=== PATIENT | female | born 1985 ===

== ENCOUNTER 2022-04-22 06:14 | Inpatient (IN) | payer OTHER ==
[2022-04-19 13:39] LABS: Hematocrit 33.8 % (30.3-42.9); Hemoglobin 10.8 gm/dl (10.1-14.3); Mean Corpuscular HGB Conc 32 % (30-34); Mean Corpuscular Volume 75 fl (79-97); Platelet Count 232 K/mm3 (140-440); Red Blood Count 4.53 M/mm3 (3.65-5.03); Red Cell Distribution Width 16.2 % (13.2-15.2)
--- NOTE | 2022-04-21 20:31 | History and Physical Report ---
History of Present Illness Date of examination: 04/19/22 Date of admission: 04/22/22 Chief complaint: here for c/s History of present illness: Pt reports for pre op for repeat c/s x3. She does not desire a BTL. All risk/benefits/alternatives were d/w pt and questions were addressed and answered. Consents were signed and placed on the chart. EDC Confirmation: 04/29/2022 Gestational Age: 38 6/7 weeks Past History : 3 Term Births: 2 Premature Births: 0 Living Children: 2 Para: 2 Mult. Births: 0 Prev : 2 Prev. attempt? none Aborta: 0 Elect. Ab: 0 Spont. Ab: 0 Ectopics: 0 # 1 Delivery date: 2007 Weeks Gestation: 39 labor: no Delivery type: Hours of labor: 18 Anesthesia type: epidural Delivery location: [place] Sex: Male weight: 8lbs 12oz Comments: IOL for LGA, CS for "too big, I wouldn't dilate" # 2 Delivery date: 2015 Weeks Gestation: 39 labor: no Delivery type: Anesthesia type: epidural Delivery location: [place] Infant Sex: Male weight: 9lbs Comments: scheduled repeat CS Past Medical History: Reviewed and updated today: Negative Past Medical History Past Surgical History: Reviewed and updated today: 2015 Family History Summary: First Degree Blood Relative - Has No Known Family History - Entered On: 12/07/2021 Social History: Smoking History: Patient has never smoked. Risk Factors: Smoked Tobacco Use: Never smoker Smokeless Tobacco Use: Never Counseled to Quit/Cut Down: yes Passive Smoke Exposure: no HIV High Risk Behavior: low risk Caffeine Use: 1 drinks per day Exercise: yes Exercise Counseling: yes Seatbelt Use: preg-marriage counselor % Family History Risk Factors: Family History of UT in 1 Female Relative Age < 65: no Family History of UT in 1 Male Relative Age < 55: no No Dietary Counseling Reason: pn yes Alcohol Use: no Drug Use: no Past Medical History Anesthesia Complications: negative Anemia: negative Autoimmune Disorder: negative Bleeding Disorder: negative Blood Transfusions: negative Breast Disease: negative Diabetes: negative Heart Disease: negative Hypertension: negative Hepatitis/Liver Disease: negative Kidney Disease/UTI: negative Neurologic/Epilepsy/Migraines: negative Phlebitis/Varicosities: negative Psychiatric: negative Pulmonary Disease/Asthma: negative Thyroid Disease: negative Hospitalizations: negative 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 Infection History Hx of STD: none HIV Risk Eval: low risk Hepatitis B Risk Eval: low risk Personal hx. of genital herpes: no Partner hx. of genital herpes: no Rash, Viral, or Febrile illness since last LMP? no Varicella/Chicken Pox Status: Previous Disease TB Risk: no Genetic History ADVANCED MATERNAL AGE Congenital Heart Defect: Mom: no Dad: no Vimal Disease: Mom: no Dad: no Thalassemia Mom: no Dad: no Neural Tube Defect Mom: no Dad: no Down's Syndrome Mom: no Dad: no Terrence-Sachs Mom: no Dad: no Sickle Cell Disease/Trait Mom: no Dad: no Hemophilia Mom: no Dad: no Muscular Dystrophy Mom: no Dad: no Cystic Fibrosis Mom: no Dad: no Will Chorea Mom: no Dad: no Mental Retardation Mom: no Dad: no Fragile X Mom: no Dad: no Other Genetic/Chromosomal Disorder Mom: no Dad: no Child w/other defect Mom: no Dad: no Enviromental Exposures Enviromental Exposures Reviewed Xray Exposure: no Medication, drug, or alcohol use since LMP: no Chemical/Other Exposure: no Exposure to Cat Liter: no Hx of Parvovirus (Fifth Disease): no Occupational Exposure to Children: none Active Medications (reviewed today): Vitamin with Minerals 28 mg iron- 800 mcg tablet ( vit-iron fum-folic ac) Take 1 tablet by mouth once a day Current Allergies (reviewed today): No known allergies Past History Past Medical History: other (see hpi) Past Surgical History: other (see hpi) 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) Social history: other (see hpi) - Obstetrical History Expected Date of Delivery: 04/29/22 Actual Gestation: 38 Week(s) 6 Day(s) : 3 Para: 2 Hx # Term Pregnancies: 2 Number of Living Children: 2 Medications and Allergies Allergies Allergy/AdvReac Type Severity Reaction Status Date / Time No Known Allergies Allergy Verified 04/17/22 14:31 Home Medications Medication Instructions Recorded Confirmed Last Taken Type No Known Home Medications [No 04/17/22 04/17/22 Unknown History Reported Home Medications] Review of Systems All systems: negative - Vital Signs Vital signs: Vital Signs Temp Pulse Resp BP Pulse Ox 97.9 F 76 20 119/79 97 04/19/22 13:00 04/19/22 13:00 04/19/22 13:00 04/19/22 13:00 04/19/22 13:00 Temp Pulse Resp BP Pulse Ox 97.9 F 76 20 119/79 97 04/19/22 13:00 04/19/22 13:00 04/19/22 13:00 04/19/22 13:00 04/19/22 13:00 - Physical Exam Cardiovascular: Normal S1, Normal S2 Lungs: Positive: Clear to auscultation, Normal air movement Abdomen: Positive: normal appearance, soft. Negative: distention, tenderness, guarding Genitourinary (Female): Positive: other (deferred) Results Result Diagrams: 04/19/22 13:10 All other labs normal. Strep Gp B MALKA Negative Assessment and Plan - Patient Problems (1) 39 weeks gestation of Status: Acute (2) Previous delivery affecting Status: Acute Plan to address problem: -admit and pre pare for c/s -consent signed and placed on the chart.
[~2022-04-22 06:14] MED LIST: BICITRA ORAL LIQD 30ML PO ONE; FAMOTIDINE 20 MG/2 ML INJ IV ONE; LACTATED RINGERS 1,000 ML IV SCH; METOCLOPRAMIDE 10 MG/2 ML INJ IV ONE; OXYTOCIN DRIP 30 UNITS/500 ML BAG IV SCH; ceFAZolin/Water 2 GM/20 ML 2 GM/20 ML SYRINGE IV NR
[2022-04-22] MEDS ORDERED: FAMOTIDINE 20 MG/2 ML INJ IV ONE (10:38)
[2022-04-22] MEDS ORDERED: METOCLOPRAMIDE 10 MG/2 ML INJ ONE (10:38)
[2022-04-22] MEDS ORDERED: BICITRA ORAL LIQD 30ML ONE (10:38)
[2022-04-22] MEDS ORDERED: miSOPROStol 200 MCG TAB ONE ×2 (10:39→10:40)
[2022-04-22] MEDS ORDERED: ceFAZolin/Water 2 GM/20 ML 2 GM/20 ML SYRINGE IV ONE (10:39)
[2022-04-22] MEDS ORDERED: CARBOPROST TROMETHAMINE 250 MCG/1 ML INJ IM ONE (10:40)
[2022-04-22] MEDS ORDERED: METHYLERGONOVINE MALEATE 0.2 MG/ML VIAL IM ONE (10:40)
[2022-04-22] MEDS ORDERED: SODIUM CHLORIDE 0.9% 100 ML ONE (11:31)
[2022-04-22] MEDS ORDERED: ePHEDrine SULFATE 50 MG/1 ML INJ ONE (11:31)
[2022-04-22] MEDS ORDERED: BUPIVACAINE/PF (0.5%) 5 MG/1 ML 30 ML VIAL INFILTRATI ONE (11:40)
[2022-04-22] MEDS ORDERED: PHENYLEPHRINE/NS 1,000 MCG/10 ML SYRINGE (OR USE) IV ONE (11:40)
--- NOTE | 2022-04-22 13:27 | Operative Report ---
Operative Report Operative Report: Date of procedure: 04/22/2022 Pre-operative diagnosis: 39 weeks gestation Previous section x2 Post-operative diagnosis: Same Procedure name(s): Primary low transverse section via Pfannenstiel skin incision Surgeon: Dr. Villareal Support Dba: DANNIELLE Anesthesia: Spinal EBL: 600 mL Urine output: 100 mL of clear urine out at end of procedure Fluids: 1500 mL Findings: Liveborn female infant 7 pounds 1 ounces Apgars of 8 and 9 at 1 and 5 minutes Grossly normal fallopian tubes and ovaries bilaterally Normal uterus Indications: Patient presents for elective repeat section. All risk benefits and alternatives were discussed with the patient. Consents were signed and placed on the chart. Procedure: Patient was taking to the operating room. Patient was then prepped and draped in sterile fashion after anesthesia was found to be adequate. A low transverse skin incision was made with the scalpel and carried down to the underlying layer of fascia with the Bovie. The fascia was then incised in the midline and this incision was extended bilaterally with the Bovie. The superior aspect of the fascia was grasped with Angelique clamps tented upward and dissected off of the anterior rectus muscles with the scalpel. In similar fashion the inferior aspect of the fascia was grasped with Angelique clamps tented upward and dissected off of the anterior rectus muscles. The rectus muscles were sharply divided in the midline. The peritoneum was identified and entered into sharply. The Judah retractor was placed. The bladder blade was placed. T A lower transverse uterine incision was made with the scalpel and extended bilaterally with the bandage scissors. Artificial rupture of membranes was performed yielding meconium stained fluid. The 's head was then delivered atraumatically. The anterior shoulder and rest of delivered without difficulty. The umbilical cord was clamped x2. The cord was cut. The infant was then placed in sterile bassinet. The placenta was manually extracted in its entirety. The uterus was exteriorized and cleared of all clots and debris. The uterine incision was closed using 0 Vicryl in a running locking fashion. A second imbricating layer of the same suture was then created. The posterior cul-de-sac was copiously irrigated. The uterus was returned to the abdomen. The gutters were also irrigated. Interceed was placed over the uterine incision with excellent hemostasis noted. The anterior rectus muscles were reapproximated using 3-0 Vicryl. The anterior rectus fascia was reapproximated using 0 Vicryl in a running fashion. The subcuticular fat was reapproximated using 2-0 Vicryl in a running fashion. The skin was reapproximated with 4-0 Monocryl in a subcuticular stitch. The patient tolerated the procedure well. Sponge lap and needle counts were all correct x3. Patient was taken to the r ecovery room awake and in stable condition.
[2022-04-22] MEDS ORDERED: MORPHINE 4 MG/1 ML INJ IV PRN (13:55)
[2022-04-22] MEDS ORDERED: HYDROmorphone 1 MG/1 ML INJ IV PRN ×2 (13:55→14:00)
[2022-04-22] MEDS ORDERED: ONDANSETRON 4 MG/2 ML INJ IV PRN ×2 (13:55→14:30)
--- NOTE | 2022-04-22 13:57 | Anesthesia Day of Surgery ---
Anesthesia Day of Surgery - Day of Surgery Patient Examined: Yes Patient H&P Reviewed: Yes Patient is NPO: Yes Beta Blockers: No Cardiac Clearance: No Pulmonary Clearance: No Wicho's Test: N/A
--- NOTE | 2022-04-22 13:57 | Anesthesia Consultation ---
Anesthesia Consult and Med Hx Date of service: 04/22/22 - Airway Anesthetic Teeth Evaluation: Good ROM Head & Neck: Adequate Mental/Hyoid Distance: Adequate Mallampati Class: Class II Intubation Access Assessment: Probably Good - Pulmonary Exam CTA: Yes - Cardiac Exam Cardiac Exam: RRR - Pre-Operative Health Status ASA Pre-Surgery Classification: ASA2 Proposed Anesthetic Plan: Spinal Nerve Block: Bobo Tap - Pulmonary Hx Smoking: No Hx Asthma: No Hx Respiratory Symptoms: No SOB: No COPD: No Home Oxygen Therapy: No Hx Pneumonia: No Hx Sleep Apnea: No - Cardiovascular System Hx Hypertension: No Hx Coronary Artery Disease: No Hx Heart Attack/AMI: No Hx Angina: No Hx Percutaneous Transluminal Coronary Angioplasty (PTCA): No Hx Cardia Arrhythmia: No Hx Pacemaker: No Hx Internal Defibrillator: No Hx Valvular Heart Disease: No Hx Heart Murmur: No Hx Peripheral Vascular Disease: No - Central Nervous System Hx Neuromuscular Disorder: No Hx Seizures: No CVA: No Hx Back Pain: No Hx Psychiatric Problems: No - Gastrointestinal Hx Ulcer: No Hx Gastroesophageal Reflux Disease: No - Endocrine Hx Renal Disease: No Hx End Stage Renal Disease: No Hx Cirrhosis: No Hx Liver Disease: No Hx Insulin Dependent Diabetes: No Hx Non-Insulin Dependent Diabetes: No Hx Thyroid Disease: No Hx Hypothyroidism: No Hx Hyperthyroidism: No - Hematic Hx Anemia: No Hx Sickle Cell Disease: No - Other Systems Hx Alcohol Use: No Hx Substance Use: No Hx Cancer: No Hx Obesity: Yes
--- NOTE | 2022-04-22 13:59 | Progress Note ---
Spinal Anesthesia Block - Spinal Anesthesia Block Start Time: 11:49 Stop Time: :54 Performed by:: LES PELAEZ Procedure: The patient was placed in a sitting position on the OR table and monitors applied. A timeout was performed immediately prior to the start of the procedure. The patient was Prepped and draped in a sterile fashion and the skin was localized with 3 mL 1% lidocaine at L[4]-L[5] interspace. An introducer was placed into the back between L4-L5 and a 25g spinal needle was advanced into the intrathecal space until clear, free flowing CSF was observed. 1.8cc of 0.75% hyperbaric bupivacaine + 0.5mcg Precedex was injected into the intrathecal space and the spinal needle was removed. The patient tolerated the procedure well and there were no immediate complications noted.
[2022-04-22] MEDS ORDERED: fentaNYL-BUPIV 2 MCG/ML-0.125% 200 MCG/100 ML BAG EPIDURAL SCH (14:00)
[2022-04-22] MEDS ORDERED: D5W/LACTATED RINGERS 1,000 ML IV SCH (14:00)
[2022-04-22] MEDS ORDERED: WITCH HAZEL/ GLYCERIN PAD TP PRN (14:00)
[2022-04-22] MEDS ORDERED: HYDROcodone/ACETAMINOPHEN 5-325 MG TAB PO PRN (14:00)
--- NOTE | 2022-04-22 14:00 | Progress Note ---
Regional Anesthesia Block - Regional Anesthesia Block Start Time: 13:39 Stop Time: 13:44 Performed By:: LES PELAEZ Procedure: During the pre-op interview the patient agreed to and signed a consent for a TAP block for post surgical pain management. After her C/S was completed a time out was performed prior to the start of the procedure. The Trans Abdominal Plane was identified bilaterally via ultrasound. The skin was prepped bilaterally with chlorhexidine and a 22g stimuplex needle was advanced to the area between the internal oblique muscle and the trans abdominal plane. Marcaine 0.25% 30mlwas injected under ultrasound guidance on the left and right side. Negative aspiration every 5mL, There was no change in the patients heart rate or rhythm and the patient tolerated the procedure well. No apparent complications were observed.
[2022-04-22] MEDS ORDERED: LANOLIN/ZINC/DIMETHICONE (LANSINOH) 7 GM TP PRN (14:30)
[2022-04-22] MEDS ORDERED: IBUPROFEN 800 MG TAB PO PRN (14:30)
[2022-04-22] MEDS ORDERED: NALOXONE 0.4 MG/1 ML INJ IV PRN ×2 (14:30)
[2022-04-22] MEDS: KETOROLAC 30 MG/1 ML INJ IV PRN (14:50)
[2022-04-22] MEDS ORDERED: PROMETHAZINE 25 MG TAB PO PRN (15:00)
[2022-04-22] MEDS ORDERED: PROMETHAZINE 25 MG RECT SUPP PR PRN (15:00)
[2022-04-22] MEDS: ceFAZolin/NS 1 GM/50 ML 1 GM/50 ML BAG IV SCH (17:31)
[2022-04-22] MEDS: MORPHINE 4 MG/1 ML INJ IV PRN (20:32)
[2022-04-23] MEDS: KETOROLAC 30 MG/1 ML INJ IV PRN ×3 (00:39→21:40)
[2022-04-23] MEDS: ceFAZolin/NS 1 GM/50 ML 1 GM/50 ML BAG IV SCH (02:28)
[2022-04-23] MEDS: MORPHINE 4 MG/1 ML INJ IV PRN (02:39)
[2022-04-23 03:26] LABS: Hematocrit 28.5 % (30.3-42.9); Hemoglobin 8.9 gm/dl (10.1-14.3)
[2022-04-23] MEDS: SIMETHICONE 80 MG CHEW TAB PO PRN ×2 (07:50→21:40)
--- NOTE | 2022-04-23 07:58 | Progress Note ---
Assessment and Plan A: 36 y.o. s/p rpt , POD #1 - Patient Problems (1) delivery delivered Current Visit: Yes Status: Acute Plan to address problem: Continue with care. Advance diet as tolerated. Encouraged ambulation. Encourage IS use. Pain medication adjusted. Anemia noted: Iron supplementation ordered. If continues to do well , may discharge home on 04/24. Subjective - Subjective Date of service: 04/23/22 Principal diagnosis: s/p rpt , POD #1 Interval history: Pt requesting pain medication. RN aware and at bedside administering pain medication. Patient reports: voiding normally, flatus, pain poorly controlled, ambulating normally : doing well Objective - Vital Signs Latest vital signs: Vital Signs Temp Pulse Resp BP BP Pulse Ox Pulse Ox 04/23/22 04:11 98.3 F 78 18 113/68 96 04/23/22 00:23 98.9 F 77 20 112/59 97 04/22/22 20:35 98 04/22/22 20:32 18 04/22/22 20:08 98.1 F 79 16 119/67 98 04/22/22 15:00 98.0 F 62 14 127/62 100 04/22/22 14:15 64 15 134/78 100 04/22/22 14:00 67 19 136/83 100 04/22/22 13:45 69 20 132/79 100 04/22/22 13:40 65 18 117/70 100 04/22/22 13:35 69 18 121/71 100 04/22/22 13:30 97.3 F L 76 16 132/79 100 04/22/22 10:29 76 116/65 04/22/22 10:28 98.6 F Intake and Output 04/22/22 04/23/22 04/23/22 22:59 06:59 14:59 Intake Total 350 420 Output Total 375 1450 Balance -25 -1030 Intake: IV 50 ANCEF/NS 1 GM/50 ML 1 gm 50 In 50 ml @ 100 mls/hr IV Q8H [facility] Rx#:[id number] Oral 120 Intake, Free Water 180 420 Output: Urine 375 1450 2-way Urethral 200 Indwelling Catheter 175 800 Void 650 Other: Total, Intake Amount 120 Total, Output Amount 175 400 - Exam Breasts: Present: deferred Cardiovascular: Present: Regular rate Lungs: Present: Normal air movement Abdomen: Present: normal appearance, soft Uterus: Present: normal Extremities: Present: normal Incision: Present: normal, dry, intact, dressed (No drainage noted on dressing. ) - Labs Labs: Abnormal lab results 04/23/22 Range/Units 02:25 Hgb 8.9 L (10.1-14.3) gm/dl Hct 28.5 L (30.3-42.9) %
[2022-04-23] MEDS: HYDROcodone/ACETAMINOPHEN 5-325 MG TAB PO PRN ×2 (08:00→14:42)
[2022-04-23] MEDS ORDERED: FERROUS SULFATE 325 MG TAB PO SCH (10:00)
[2022-04-23] MEDS ORDERED: TETANUS,DIPH,PERTUSS(ACELL) VACCINE 0.5 ML SYRINGE IM ONE (13:31)
[2022-04-24] MEDS: HYDROcodone/ACETAMINOPHEN 5-325 MG TAB PO PRN ×3 (01:41→16:22)
--- NOTE | 2022-04-24 08:54 | Discharge Summary ---
Providers - Providers Date of Admission: 04/22/22 06:14 Date of discharge: 04/24/22 (desires d/c home) Attending physician: REBEKAH VARGAS Primary care physician: SURENDRA PATTERSON Hospitalization Reason for admission: repeat c/s Condition: Good Pertinent studies: postop H&H 8.9/28.5, asymptomatic anemia from acute blood loss Procedures: repeat c/s Hospital course: uncomplicated repeat c/s and postop course Disposition: 01 HOME / SELF CARE / HOMELESS Final Discharge Diagnosis (Prints w/discharge instructions): postop c/s Time spent for discharge: 20 - Discharge Diagnoses (1) delivery delivered Status: Acute Core Measure Documentation - Palliative Care Palliative Care/ Comfort Measures: Not Applicable - Core Measures Any of the following diagnoses?: none Exam - Constitutional Vitals: Temp Pulse Resp BP Pulse Ox 97.8 F 84 16 117/69 97 04/24/22 00:10 04/24/22 00:10 04/24/22 01:41 04/24/22 00:10 04/24/22 00:10 General appearance: Present: no acute distress, well-nourished - EENT Eyes: Present: PERRL ENT: hearing intact, clear oral mucosa - Neck Neck: Present: supple, normal ROM - Respiratory Respiratory effort: normal Respiratory: bilateral: CTA - Cardiovascular Rhythm: regular Heart Sounds: Absent: rub, click - Extremities Extremities: No edema Peripheral Pulses: within normal limits - Abdominal General gastrointestinal: Present: soft, non-tender, non-distended, normal bowel sounds Female genitourinary: Present: normal - Integumentary Integumentary: Present: clear, warm, dry - Musculoskeletal Musculoskeletal: gait normal, strength equal bilaterally - Psychiatric Psychiatric: appropriate mood/affect, intact judgment & insight - Neurologic Neurologic: CNII-XII intact, moves all extremities - Additional findings Additional findings: lochia scant, fundus firm Plan Activity: advance as tolerated Diet: regular Wound: open to air, keep clean and dry Follow up with: SURENDRA PATTERSON MD [Primary Care Provider] - 7 Days REBEKAH VARGAS MD [Staff Physician] - 7 Days (Congratulations! Please call [phone] to schedule your incision check in 1 week. Take a shower everyday and wash incision with soap and water, then dry thoroughly. Call for any questions or concerns. ) Prescriptions: Docusate Sodium [Colace] 100 mg PO BID PRN #60 capsule PRN Reason: Constipation Ferrous Sulfate [Feosol 325 MG tab] 325 mg PO QDAY #60 tablet Ibuprofen [Motrin 800 MG tab] 800 mg PO Q8HR PRN #30 tablet PRN Reason: Pain, Moderate (4-6) oxyCODONE /ACETAMINOPHEN [Percocet 5/325] 1 tab PO Q4HR #30 tab
--- NOTE | 2022-04-24 10:02 | Post Anesthesia Evaluation ---
- Post Anesthesia Evaluation Patient Participated: Yes Airway Patent: Yes Stable Respiratory Function: Yes Nausea/Vomiting: No Temp > 96.8F: Yes Pain Manageable: Yes Adequeate Hydration: Yes Anesthesia Complications: No Block Receding Appropriately: Yes Patient on Ventilator: No
[2022-04-24 15:33] VITALS: BP 134/76
== END 2022-04-24 18:14 | disposition home or self-care (01) | DRG 765 ==
LOC: APU 06:14 → EDBD 06:14 → APU 11:37 → OB 15:04
PROVIDERS: ADMIT Obstetrics & Gynecology; ATTEND Obstetrics & Gynecology
PROC: 10D00Z1 Extraction of Products of Conception, Low, Open Approach (ICD-10-PCS; principal; 2022-04-22)
PROC: 3E0T3BZ Introduction of Anesthetic Agent into Peripheral Nerves and Plexi, Percutaneous Approach (ICD-10-PCS; 2022-04-22)
PROC: 3E0234Z Introduction of Serum, Toxoid and Vaccine into Muscle, Percutaneous Approach (ICD-10-PCS; 2022-04-23)
DX: O34.211 Maternal care for low transverse scar from previous cesarean delivery (principal); D62 Acute posthemorrhagic anemia; Z37.0 Single live birth; Z3A.39 39 weeks gestation of pregnancy; Z20.822 Contact with and (suspected) exposure to COVID-19; Z23 Encounter for immunization; O90.81 Anemia of the puerperium; O99.214 Obesity complicating childbirth
CPT/HCPCS: 36415; 85014; 85018; 85027; 86592; 86850; 86900; 86901; 88307; G0378; J3490; J7060; J7121; C1765; J0690; J1885; J2270; J2370; J2765; J7120; U0003